=== PATIENT | female | born 1970 | race Caucasian/White ===

== ENCOUNTER 2019-05-24 10:36 | Emergency (ER) | payer MEDICAID ==
[~2019-05-24] VITALS: Ht 170.2 cm; Wt 106.0 kg
[~2019-05-24 10:36] MED LIST: LIDO20SO PO
[2019-05-24 10:40] VITALS: BP 184/93
[2019-05-24] MEDS ORDERED: diphenhydrAMINE 25mg capsule PO ONE (11:20)
== END 2019-05-24 11:24 | disposition home or self-care (01) ==
LOC: ER 10:36
DX: R22.0 Localized swelling, mass and lump, head (principal); T46.4X5A Adverse effect of angiotensin-converting-enzyme inhibitors, initial encounter; E66.9 Obesity, unspecified; I10 Essential (primary) hypertension; E11.9 Type 2 diabetes mellitus without complications; Z98.890 Other specified postprocedural states; Y92.89 Other specified places as the place of occurrence of the external cause
CPT/HCPCS: 99282; Q0163

== ENCOUNTER 2022-03-08 16:22 | Emergency (ER) | payer MEDICAID ==
[~2022-03-08] VITALS: Ht 170.2 cm; Wt 156.8 kg
[2022-03-08 17:00] VITALS: BP 168/93
[2022-03-08] MEDS ORDERED: cephalexin 250mg capsule PO ONE (18:15)
[2022-03-08] MEDS ORDERED: furosemide 20MG tablet PO ONE (18:20)
[2022-03-08] MEDS ORDERED: POTASSIUM BICARB 20meq eff tab 20 MEQ TABLET.EFF PO ONE (18:25)
[2022-03-08] MEDS ORDERED: POTA-207 PO (18:26)
[2022-03-08] MEDS ORDERED: FURO-150 PO (18:26)
[2022-03-08] MEDS ORDERED: CEPH-585 PO (18:26)
== END 2022-03-08 18:50 | disposition home or self-care (01) ==
LOC: ER 16:23
DX: S81.802A Unspecified open wound, left lower leg, initial encounter (principal); L03.116 Cellulitis of left lower limb; I10 Essential (primary) hypertension; E11.9 Type 2 diabetes mellitus without complications; Z88.8 Allergy status to other drugs, medicaments and biological substances; Z79.2 Long term (current) use of antibiotics; Z79.899 Other long term (current) drug therapy; X58.XXXA Exposure to other specified factors, initial encounter; Y93.89 Activity, other specified; Y92.89 Other specified places as the place of occurrence of the external cause; Y99.8 Other external cause status
CPT/HCPCS: 99284; A6258; A6449

== ENCOUNTER 2022-06-25 17:01 | Emergency (ER) | payer MEDICAID ==
[~2022-06-25] VITALS: Ht 170.2 cm; Wt 152.3 kg
[~2022-06-25 17:01] MED LIST changes: +CEPH-585 PO
[2022-06-25 17:34] LABS: BASOPHILS # (AUTO) 0.1 X10'3 (0-0.2); BASOPHILS % (AUTO) 0.9 % (0-1); EOSINOPHILS # (AUTO) 0.3 X10'3 (0-0.9); EOSINOPHILS % (AUTO) 2.4 % (0-6); HEMATOCRIT 38.3 % (35.0-45.0); HEMOGLOBIN 13.1 g/dl (12.0-16.0); LYMPHOCYTES # (AUTO) 3.2 X10'3 (1.1-4.8); LYMPHOCYTES % (AUTO) 29.5 % (21-51); MEAN CORPUSCULAR HEMOGLOBIN 27.5 PG (27.0-31.0); MEAN CORPUSCULAR HGB CONC 34.1 g/dL (33.0-36.5); MEAN CORPUSCULAR VOLUME 80.5 FL (78-98); MEAN PLATELET VOLUME 7.8 FL (7.4-10.4); MONOCYTES # (AUTO) 0.8 X10'3 (0-0.9); MONOCYTES % (AUTO) 7.8 % (2-12); NEUTROPHILS # (AUTO) 6.4 X10'3 (1.8-7.7); NEUTROPHILS % (AUTO) 59.4 % (42-75); PLATELET COUNT 351 X10'3 (140-440); RED BLOOD COUNT 4.77 X10'6 (4.20-5.60); RED CELL DISTRIBUTION WIDTH 14.1 % (11.5-14.5); WHITE BLOOD COUNT 10.7 X10'3 (4.5-11.0)
[2022-06-25 17:50] LABS: ALANINE AMINOTRANSFERASE 25 U/L (12-78); ALBUMIN 3.2 G/DL (3.4-5.0); ALBUMIN/GLOBULIN RATIO 0.8 (1.1-1.5); ALKALINE PHOSPHATASE 104 IU/L (46-116); ANION GAP 6 (8-16); ASPARTATE AMINO TRANSFERASE 13 U/L (10-37); BILIRUBIN,TOTAL 0.2 MG/DL (0.1-1.0); BLOOD UREA NITROGEN 13 MG/DL (7-18); CALCIUM 9.3 MG/DL (8.5-10.1); CHLORIDE 101 MMOL/L (99-107); CREATININE 0.81 MG/DL (0.40-0.90); GLUCOSE 146 MG/DL (70-104); POTASSIUM 3.9 MMOL/L (3.5-5.1); SODIUM 137 MMOL/L (135-145); TOTAL CARBON DIOXIDE 30.5 MMOL/L (24-32); TOTAL PROTEIN 7.4 G/DL (6.4-8.2); eGFR 75 ML/MIN
[2022-06-25 19:45] LABS: PHENYTOIN (DILANTIN) 3.8 UG/ML (10.0-20.0)
[2022-06-25] MEDS ORDERED: FOSphenytoin 100mg/2ml inj IV ONE (19:55)
[2022-06-25] MEDS ORDERED: NORMAL SALINE IV ONE ×4 (20:15→20:20)
[2022-06-25] MEDS ORDERED: FOSPHENYTOIN IV ONE ×4 (20:15→20:20)
--- NOTE | 2022-06-25 22:00 | NUR ---
> REC'D PT FROM [facility] ED RN, THEN PT WAS DISCHARGED FROM ED BY [facility]
[2022-06-25 22:18] VITALS: BP 138/75
== END 2022-06-25 22:21 | disposition home or self-care (01) ==
LOC: ER 17:01
DX: R56.9 Unspecified convulsions (principal); R42 Dizziness and giddiness; R53.83 Other fatigue; I10 Essential (primary) hypertension; E11.9 Type 2 diabetes mellitus without complications; Z86.69 Personal history of other diseases of the nervous system and sense organs; Z88.8 Allergy status to other drugs, medicaments and biological substances; Z79.2 Long term (current) use of antibiotics; Z79.899 Other long term (current) drug therapy
CPT/HCPCS: 36415; 71045; 80053; 80177; 80185; 84484; 85025; 93005; 96365; 99285; J3490; Q2009

== ENCOUNTER 2023-03-18 18:19 | Emergency (ER) | payer MEDICAID ==
[~2023-03-18] VITALS: Ht 170.2 cm; Wt 144.0 kg
[~2023-03-18 18:19] MED LIST changes: -CEPH-585 PO
[2023-03-18] MEDS ORDERED: HYDROcodone/acetaminophen 10/325mg tab PO ONE (19:20)
[2023-03-18] MEDS ORDERED: morphine 10mg/ml inj. IM ONE (19:20)
[2023-03-18] MEDS ORDERED: HYDR-3973 PO (20:05)
[2023-03-18 20:14] VITALS: BP 167/75
== END 2023-03-18 20:17 | disposition home or self-care (01) ==
LOC: ER 18:20
DX: S42.212A Unspecified displaced fracture of surgical neck of left humerus, initial encounter for closed fracture (principal); I10 Essential (primary) hypertension; E11.9 Type 2 diabetes mellitus without complications; Z88.8 Allergy status to other drugs, medicaments and biological substances; W18.2XXA Fall in (into) shower or empty bathtub, initial encounter; Y93.89 Activity, other specified; Y92.89 Other specified places as the place of occurrence of the external cause; Y99.8 Other external cause status
CPT/HCPCS: 29105; 73030; 96372; 99284; J2274; A4565

== ENCOUNTER 2023-07-29 11:12 | Outpatient (CLI) | payer MEDICAID | END 2023-07-29 23:59 | disposition home or self-care (01) | LOC: RAD 11:12 | PROVIDERS: ATTEND Nurse Practitioner Family | DX: G40.309 Generalized idiopathic epilepsy and epileptic syndromes, not intractable, without status epilepticus (principal); R94.01 Abnormal electroencephalogram [EEG] | CPT/HCPCS: 95819 ==

== ENCOUNTER 2025-08-07 11:45 | Emergency (ER) | payer MEDICAID ==
[~2025-08-07] VITALS: Ht 170.2 cm; Wt 132.0 kg
[2025-08-07 12:02] VITALS: TEMP 98
--- NOTE | 2025-08-07 12:32 | RADIOLOGY REPORT ---
CLINICAL HISTORY: KNEE PAIN TECHNIQUE: 3 views of the right knee were obtained. COMPARISON: None FINDINGS: No acute fracture or dislocation is seen. No joint effusion is evident. There are no significant degenerative changes. IMPRESSION: NO ACUTE RADIOGRAPHIC ABNORMALITY OF THE RIGHT KNEE.
[2025-08-07 12:46] VITALS: BP 133/72; PULSE 74; O2SAT 97
--- NOTE | 2025-08-07 12:50 | Physician Documentation ---
History of Present Illness ~ Chief Complaint: Knee Pain Stated Complaint: KNEE PAIN Time Seen by MD: 12:13 Primary Medical Doctor: Dr Hill at [facility] L knee pain s/p seizure activity. Is ambulatory. Tetanus witin 5 years: No Medication Reconciliation Allergies: Coded Allergies: lisinopril (Unverified Allergy, Severe, 08/07/25) Scheduled Lidocaine Hcl (Lidocaine Hcl Viscous), 15 ML PO QID Past Medical History Past Medical History: Seizures, Hypertension, Diabetes Past Surgical History: no surgical history Alcohol Use: None Drug Use: none Lives with: Family Lives In: Home Occupation: employed Review of Systems All Other Systems at this time: Reviewed and Negative Physical Exam Vital Signs: RN Vital Signs have been reviewed: Yes, Temperature: 98.0, Source: Temporal, Heart Rate: 74, Respiratory Rate: 15, BP: 133/72, Pulse Oximetry: 97, Weight: 132.000 Oxygen Flow Rate: 0 Physical Exam Gen: no distress HEENT: PERRL, EOMI Pulm: no distress CV: deferred Abd: deferred MSK: no deformity; L knee diffusely tender with minimal effusion Skin: w/d/i Psych: unremarkable Progress Results/Orders Reviewed/noted all lab results: Yes Results/Orders Orders - MAURICIO MARIE MD Knee, Complete (08/07/25 12:04) Completed Orders - MAURICIO MARIE MD Knee, Complete (08/07/25 12:04) Vital Signs 08/07/25 08/07/25 12:02 12:46 Temp 98.0 Pulse 82 74 Resp 16 15 B/P (MAP) 172/82 133/72 (92) Pulse Ox 94 97 O2 Flow Rate 0 EKG/XRAY/CT/US/VASC/MRI Bone/Soft Tissue X-Ray (Ext.) : Interpreted By: self Views: 3 VIEW Indication: pain Location: knee Impression: normal Medical Decision Making Additional information obtaine: N/A Findings 54 year old female with L knee pain after fall. Xray unremarkable. NSAIDs, reassurance, return precautions. General Diff Dx:Considerations: Include: Other Knee Diff Dx:Considerations: Include: Other Ankle Diff Dx:Considerations: Include: Other Foot Diff Dx:Considerations: Include: Other Toe Diff Dx:Considerations: Include: Other Departure Disposition: 01 HOME / SELF CARE / HOMELESS Impression: Primary Impression: Knee pain Condition: Stable Discharge Instructions: Acute Knee Pain, Adult Referrals: NO PRIMARY CARE PROVIDER (PCP) Education Educated: Patient Educated regarding: diagnosis, treatment, prognosis, need for follow up Signature Scribe Signature: . Attestation: . MAURICIO MRAIE MD Aug 07, 2025 12:50
[2025-08-07 13:02] VITALS: RESP 15
[2025-08-07] MEDS: ketorolac trometh 15mg/ml vial 15 MG/ML ML IM ONE (13:02)
== END 2025-08-07 13:08 | disposition home or self-care (01) ==
LOC: ER 11:45
DX: M25.562 Pain in left knee (principal); E11.9 Type 2 diabetes mellitus without complications; I10 Essential (primary) hypertension; Z88.8 Allergy status to other drugs, medicaments and biological substances
CPT/HCPCS: 73564; 96372; 99283; J1885